=== PATIENT | male | born 1955 | race Caucasian/White ===

== ENCOUNTER 2019-11-16 02:47 | Emergency (ER) | payer MEDICARE, OTHER ==
[~2019-11-16] VITALS: Ht 172.7 cm; Wt 81.7 kg
[2019-11-16] MEDS ORDERED: PREZISTA PO (03:35)
[2019-11-16] MEDS ORDERED: NORVIR100 MG PO (03:36)
[2019-11-16] MEDS ORDERED: SELZENTRY PO (03:37)
[2019-11-16] MEDS ORDERED: OMEP20ER PO (03:39)
[2019-11-16] MEDS ORDERED: [UNRECOGNIZED DRUG - OTHER] PO (03:39)
[2019-11-16] MEDS ORDERED: Norco 5-325 Ta1 EACH PO (04:52)
[2019-11-16] MEDS ORDERED: IBUP600 PO (04:52)
[2019-11-16] MEDS ORDERED: METPRE4DP PO (04:52)
== END 2019-11-16 05:11 | disposition home or self-care (01) ==
LOC: ER 02:47
DX: M51.16 Intervertebral disc disorders with radiculopathy, lumbar region (principal); Z91.09 Other allergy status, other than to drugs and biological substances; B20 Human immunodeficiency virus [HIV] disease; N19 Unspecified kidney failure; Z86.19 Personal history of other infectious and parasitic diseases; Z79.899 Other long term (current) drug therapy
CPT/HCPCS: 72100; 99283-25; A9270-GY